=== PATIENT | male | born 1960 | race Caucasian/White ===

== ENCOUNTER → 2025-04-05 08:02 | Outpatient (REF) | payer MEDICARE, OTHER, SELFPAY ==
[2025-04-05 09:57] LABS: % Basophils 0.3 % (0-2); % Eosinophils 5.1 % (0-6); % Immature Granulocytes 0.5 % (0-0.5); % Lymphocytes 17.9 % (20.5-51.1); % Monocytes 6.7 % (1.7-9.3); % Neutrophils 69.5 % (42.2-75.2); Absolute Eosinophils 0.3 10^3/uL (0-0.7); Absolute Lymphocytes 1.1 10^3/uL (1.2-3.4); Absolute Monocytes 0.4 10^3/uL (0.1-0.6); Absolute Neutrophils 4.2 10^3/uL (1.4-6.5); Hematocrit 32.6 % (39.0-52.0); Hemoglobin 10.6 g/dL (13.0-18.0); Mean Corp Hgb Conc. 32.5 g/dL (33.0-37.0); Mean Corpuscular Hgb 30.5 pg (27.0-31.0); Mean Corpuscular Volume 93.7 fL (80.0-94.0); Mean Platelet Volume 10.6 fL (7.4-10.4); Nucleated Red Blood Cells % 0 % (-); Platelet Count 196 10^3/uL (130-400); Red Blood Cell Count 3.48 10^6/uL (4.70-6.10); Red Cell Dist. Width 13.3 % (11.5-14.5); White Blood Cell Count 6.1 10^3/uL (4.8-10.8)
[2025-04-05 10:00] LABS: Urine Albumin 3+ (Neg - Trace); Urine Bilirubin Negative (Negative); Urine Character Clear (Clear); Urine Color Yellow; Urine Glucose 2+ (Negative); Urine Ketone Negative (Negative); Urine Leukocyte Negative (Negative); Urine Nitrite Negative (Negative); Urine Occult Blood 1+ (Negative); Urine Urobilinogen Negative (Neg - 1+)
[2025-04-05 10:21] LABS: Urine Squamous Cell 0-2 /LPF (Few)
[2025-04-05 10:22] LABS: Urine Amorphous Seen
[2025-04-05 10:25] LABS: Urine White Cell 0-2 /HPF (0-5)
[2025-04-05 12:11] LABS: Protein/creatinine Ratio 2.1; Urine Protein 323 mg/dl
[2025-04-05 12:28] LABS: Intact PTH 69.1 pg/ml (13.6-85.8)
[2025-04-05 12:54] LABS: Blood Urea Nitrogen 56 mg/dl (9-20); Calcium 9.7 mg/dl (8.4-10.2); Carbon Dioxide 21 mmol/L (22-30); Chloride 108 mmol/L (98-107); Glucose 86 mg/dl (70-99); Iron 69 ug/dl (49-181); Phosphorus 3.7 mg/dl (2.5-4.5); Potassium 4.5 mmol/L (3.5-5.1); Sodium 138 mmol/L (135-145); eGFR 26.54
[2025-04-05 14:00] LABS: Uric Acid 8.1 mg/dl (3.5-8.5)
[2025-04-05 14:17] LABS: Microalbumin, Random Urine > 57.0 mg/dl (0.6-1.7)
[2025-04-05 19:11] LABS: Vitamin D, 25-OH*** 63.3 ng/mL (30-80)
[2025-04-05 19:29] LABS: Ferritin 65.2 ng/ml (17.9-464.0)
[2025-04-07 01:56] LABS: Aldosterone, Serum 13.4 ng/dL
[2025-04-07 03:41] LABS: Transferrin 236 mg/dL (200-360)
[2025-04-07 22:59] LABS: Renin Activity Results 0.8 ng/mL/hr
== END ==
LOC: HWRAD 08:02
PROVIDERS: ATTENDING PHYSICIAN Student in an Organized Health Care Education/Training Program; FAMILY PHYSICIAN Family Medicine
DX: N18.4 Chronic kidney disease, stage 4 (severe) (principal)
CPT/HCPCS: 36415; 80048; 81003; 81015; 82043; 82088; 82306; 82570; 82728; 83540; 83735; 83970; 84100; 84156; 84244; 84466; 84550; 85025; 93975

== ENCOUNTER → 2025-07-14 12:38 | Outpatient (REF) | payer MEDICARE, OTHER, SELFPAY ==
[2025-07-14 17:58] LABS: Urine Character Clear (Clear)
[2025-07-14 18:39] LABS: Urine Red Blood Cell 0-2 /HPF (0-2)
[2025-07-14 18:45] LABS: Microalb - Urine Creatinine 73.700 mg/dl
[2025-07-14 19:28] LABS: Microalbumin, Random Urine > 57.0 mg/dl (0.6-1.7)
== END ==
LOC: HWLAB 12:38
PROVIDERS: ATTENDING PHYSICIAN Student in an Organized Health Care Education/Training Program; FAMILY PHYSICIAN Family Medicine
DX: N18.4 Chronic kidney disease, stage 4 (severe) (principal); E11.22 Type 2 diabetes mellitus with diabetic chronic kidney disease; Z79.4 Long term (current) use of insulin
CPT/HCPCS: 81003; 81015; 82043; 82570; 84156